=== PATIENT | female | born 1985 | race Caucasian/White ===

== ENCOUNTER 2016-06-05 09:59 | Day surgery (SDC) ==
[2016-06-05] MEDS ORDERED: LR 1,000 ML ONE (11:05)
[2016-06-05] MEDS ORDERED: PEPCID ONE (11:06)
[2016-06-05] MEDS ORDERED: KEFZOL 2 GM/D5W 50 ML ONE (11:06)
[2016-06-05] MEDS ORDERED: TRANSDERM-SCOP ONE (11:06)
[2016-06-05] MEDS ORDERED: REGLAN ONE (11:06)
[2016-06-05] MEDS ORDERED: NEOSPORIN G.U. IRRIGANT ONE (12:09)
[2016-06-05] MEDS ORDERED: FENTANYL ONE (13:26)
[2016-06-05] MEDS ORDERED: VERSED ONE (13:26)
[2016-06-05] MEDS ORDERED: DIPRIVAN 1% ONE (13:27)
[2016-06-05] MEDS ORDERED: MORPHINE ONE (13:34)
[2016-06-05] MEDS ORDERED: LR 500 ML ONE (13:35)
[2016-06-05] MEDS: MORPHINE ONE ×2 (13:37→13:44)
[2016-06-05] MEDS ORDERED: NORCO-10 ONE (14:19)
[2016-06-05] MEDS ORDERED: DECADRON ONE (14:46)
[2016-06-05] MEDS ORDERED: ZOFRAN ONE (14:46)
[2016-06-05] MEDS ORDERED: XYLOCAINE-MPF 2% ONE (14:46)
[2016-06-05 15:15] VITALS: BP 120/75
--- NOTE | 2016-06-05 17:08 | OPERATIVE NOTE ---
PROCEDURE DATE: 06/05/2016 PREOPERATIVE DIAGNOSIS: Right femoral neck stress fracture, tension side. POSTOPERATIVE DIAGNOSIS: Right femoral neck stress fracture, tension side. PROCEDURE PERFORMED: Closed reduction and percutaneous pinning, right femoral neck. SURGEON: Kylah Delcid MD SPRAY RIG OPERATOR: NICK Dubon ANESTHESIA: General. COMPLICATIONS: None. PROCEDURE IN DETAIL: This is a 30-year-old female with a stress-related right femoral neck fracture on the tension side who presents for prophylactic surgical fixation. Risks, benefits, and no guarantees were discussed, and she was willing to proceed. She was taken to the operating room and satisfactory anesthesia obtained. She was placed on the [place] table and the right hip prepped and draped in the usual sterile fashion. A time-out was taken to confirm operative site, procedure, and patient. Under multiplanar image guidance, a 1-inch incision was made along the lateral thigh. Dissection was carried down to the lateral aspect of the proximal femur. Under multiplanar image guidance, 3 Synthes 7.3 cannulated screw guidewires were placed in a triangular fashion in the central aspect of the femoral head. Care was taken to avoid any articular penetration. Two 90 length and one 85 length partially threaded cancellous screws were placed over the guidewires with secure fixation. The guidewires were removed and the C-arm used to verify accurate fracture reduction and hardware placement with no evidence of joint penetration. The wound was then irrigated and closed in layers with 0 Vicryl in the deep fascia, 2-0 Vicryl in the subcu, and skin siva on the skin edges. Sterile dressings completed the closure and the patient was recovered from anesthesia and transferred to the recovery room in stable condition. No intraoperative complications were noted. Instrument and sponge counts were correct at the time of closure.
== END 2016-06-05 15:30 | disposition home or self-care (01) ==
LOC: OR 09:59
PROVIDERS: ATTEND Orthopaedic Surgery Adult Reconstructive Orthopaedic Surgery
DX: M84.359A Stress fracture, hip, unspecified, initial encounter for fracture (principal); X58.XXXD Exposure to other specified factors, subsequent encounter; M25.551 Pain in right hip; R01.1 Cardiac murmur, unspecified
CPT/HCPCS: 76000; 81025; J0690; J1100; J2250; J2270; J2405; J3010; J7120